=== PATIENT | male | born 1985 | race American Indian/Alaskan Native ===

== ENCOUNTER 2021-05-29 21:28 | Emergency (ER) | payer SELFPAY ==
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
--- NOTE | 2021-05-29 22:07 | XRay Report ---
LEFT SHOULDER 2 VIEW(S) INDICATION / CLINICAL INFORMATION: probable dislocation COMPARISON: None available. FINDINGS: BONES / JOINT(S): Anterior dislocation of the left humerus in relation to the glenoid. The left humer us remains perched along the anterior inferior glenoid. No definite fracture is identified. No signif icant arthritis. SOFT TISSUES: No significant abnormality. ADDITIONAL FINDINGS: None. Signer Name: Mic Agrawal MD Signed: 05/29/2021 10:03 PM Workstation Name: [id number]
[2021-05-29] MEDS: LORazepam 2 MG/ML VIAL IV ONE (22:12)
[2021-05-29] MEDS: KETOROLAC 30 MG/1 ML INJ IV ONE (22:12)
[2021-05-29] MEDS: LIDOCAINE (1%) 10 MG/1 ML VIAL 20 ML MDV INFILTRATI ONE (22:17)
[2021-05-30 01:09] VITALS: BP 119/80
== END 2021-05-30 00:20 | disposition home or self-care (01) ==
LOC: ED 21:28
DX: S43.085A Other dislocation of left shoulder joint, initial encounter (principal); I10 Essential (primary) hypertension; F17.200 Nicotine dependence, unspecified, uncomplicated; Z79.899 Other long term (current) drug therapy; W18.39XA Other fall on same level, initial encounter; Y93.89 Activity, other specified; Y92.89 Other specified places as the place of occurrence of the external cause; Y99.8 Other external cause status
CPT/HCPCS: 23650; 73030; 96374; 96375; 99283; J1885; J2060

== ENCOUNTER 2021-06-21 21:44 | Emergency (ER) | payer BC ==
[2021-06-21] MEDS ORDERED: ONDANSETRON 4 MG/2 ML INJ IV ONE (23:14)
[2021-06-21] MEDS ORDERED: HYDROmorphone 1 MG/1 ML INJ IV ONE (23:17)
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
--- NOTE | 2021-06-22 00:24 | XRay Report ---
LEFT SHOULDER 3 VIEWS 2338 INDICATION: poss dislocation COMPARISON: 05/29/2021 FINDINGS: The anterior dislocation of the humeral head in relation to the glenoid is either a again s een or has recurred. No fracture is obvious. Signer Name: Roge Kinney MD Signed: 06/22/2021 12:20 AM Workstation Name: [id number]
--- NOTE | 2021-06-22 00:59 | XRay Report ---
LEFT SHOULDER 2 VIEWS 0043 INDICATION: Post reduction COMPARISON: 06/21/2020 10/20/1937 FINDINGS: The previous anterior dislocation has been reduced. Small curvilinear densities just inferi or to the glenoid could represent small fracture fragments but I do not see a donor site. Signer Name: Roge Kinney MD Signed: 06/22/2021 12:55 AM Workstation Name: [id number]
[2021-06-22 07:29] VITALS: BP 122/74
== END 2021-06-22 02:00 | disposition home or self-care (01) ==
LOC: ED 21:44
DX: S43.005A Unspecified dislocation of left shoulder joint, initial encounter (principal); I10 Essential (primary) hypertension; A60.00 Herpesviral infection of urogenital system, unspecified; Z98.890 Other specified postprocedural states; F17.200 Nicotine dependence, unspecified, uncomplicated; X58.XXXA Exposure to other specified factors, initial encounter; Y93.89 Activity, other specified; Y92.89 Other specified places as the place of occurrence of the external cause; Y99.8 Other external cause status
CPT/HCPCS: 23650; 73030; 96374; 96375; 99283; J1170; J2405

== ENCOUNTER 2021-08-29 21:25 | Emergency (ER) | payer SELFPAY ==
[2021-08-29] MEDS ORDERED: ACETAMINOPHEN 500 MG TAB PO ONE (21:47)
[2021-08-29] MEDS ORDERED: IBUPROFEN 600 MG TAB PO ONE (21:47)
--- NOTE | 2021-08-29 22:18 | XRay Report ---
CHEST 2 VIEWS INDICATION / CLINICAL INFORMATION: cough, fever. COMPARISON: One view of the chest from 10/05/2015. FINDINGS: SUPPORT DEVICES: None. HEART / MEDIASTINUM: No significant abnormality. LUNGS / PLEURA: No significant pulmonary abnormality. No significant pleural effusion. No pneumothora x. ADDITIONAL FINDINGS: No significant additional findings. IMPRESSION: 1. No acute abnormality of the chest. Signer Name: Eduardo Schneider MD Signed: 08/29/2021 10:13 PM Workstation Name: [email or web address]
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
[2021-08-30 07:32] VITALS: BP 125/75
== END 2021-08-30 08:12 | disposition home or self-care (01) ==
LOC: ED 21:25
DX: B34.9 Viral infection, unspecified (principal); R19.7 Diarrhea, unspecified; Z86.79 Personal history of other diseases of the circulatory system; F17.200 Nicotine dependence, unspecified, uncomplicated; I10 Essential (primary) hypertension
CPT/HCPCS: 71046; 87400; 99284